=== PATIENT | female | born 1930 | race Caucasian/White ===

== ENCOUNTER 2016-11-23 16:20 | Inpatient (IN) | payer MEDICARE ==
[2016-11-23] VITALS: BP 113/54
[~2016-11-23] VITALS: Ht 152.4 cm; Wt 66.2 kg
[~2016-11-23 16:20] MED LIST: AMLO1POW PO; ASPI-605 PO; BUPR300T52 PO; CARV12.52 PO; ESCI20TA PO; GALA8CAP5 PO; LEVO75TA7 PO; MEMA10TA PO; SIMV40TA5 PO; VALS1TAB54 PO
[2016-11-23] MEDS ORDERED: IV SET PRIMARY PUMP SET 1 EA INFUS.SET MC ONE ×3 (16:21→22:19)
[2016-11-23] MEDS ORDERED: IV NS 0.9% 500 ML IV ONE (16:21)
[2016-11-23] MEDS ORDERED: IV NS 0.9% 1,000 ML BAG IV ONE (16:30)
[2016-11-23 16:59] LABS: DIFF TOTAL % 100 %; EOSINOPHILS % (AUTO) 0.4 % (0.0-6.0); HEMATOCRIT 37 % (33-45); HEMOGLOBIN 12.2 g/dL (11.5-14.8); LYMPHOCYTES # (AUTO) 0.7 /CMM (0.8-4.8); LYMPHOCYTES % (AUTO) 12.5 % (20.0-44.0); MEAN CORPUSCULAR HEMOGLOBIN 30 PG (26.0-33.0); MEAN CORPUSCULAR HGB CONC 33 g/dl (31.0-36.0); MEAN CORPUSCULAR VOLUME 91 fL (82-100); MONOCYTES # (AUTO) 0.6 /CMM (0.1-1.30); MONOCYTES % (AUTO) 11.6 % (2.0-12.0); NEUTROPHILS # (AUTO) 4.1 /CMM (1.8-8.9); NEUTROPHILS % (AUTO) 75.5 % (43.0-81.0); PLATELET COUNT (AUTO) 153 /CMM (150-450); RED BLOOD CELL COUNT(AUTO) 4.05 MIL/uL (4.0-5.2); WHITE BLOOD COUNT (AUTO) 5.4 K/uL (4.3-11.0)
[2016-11-23] MEDS ORDERED: IV NS 0.9% 1,000 ML ONE ×2 (16:59→22:19)
[2016-11-23] MEDS ORDERED: PIPERACILLIN /TAZOBACTAM 3.375 G in IV D5W 50 ML IV ONE (17:00)
[2016-11-23 17:02] LABS: KETONES,URINE NEGATIVE (NEGATIVE); LEUKOCYTE ESTERASE ,URINE TRACE (NEGATIVE)
[2016-11-23 17:03] LABS: ANION GAP 11 (5-14); CALCIUM, SERUM 9.4 mg/dL (8.5-10.1); CARBON DIOXIDE 34 mmol/L (21-32); CHLORIDE 105 mmol/L (98-107); CREATININE 1.6 mg/dL (0.6-1.3); GLUCOSE 166 mg/dL (74-106); POTASSIUM 3.7 mmol/L (3.5-5.1); SODIUM SERUM 146 mmol/L (136-145); UREA NITROGEN, BLOOD 32 mg/dL (7-18)
[2016-11-23 17:06] LABS: ADD UA MICROSCOPIC YES
[2016-11-23 17:11] LABS: LACTIC ACID 1.7 mmol/L (0.4-2.0)
[2016-11-23 17:11] LABS: ADD URINE CULTURE NO; RBC,URINE 0-2 /HPF (0-2); WBC,URINE 0-2 /HPF (0-3)
[2016-11-23 17:13] LABS: PROTHROMBIN TIME 10.8 SECS (9.5-12.7)
[2016-11-23] MEDS ORDERED: MEMA28CA PO (17:21)
[2016-11-23] MEDS ORDERED: ESCI10TA PO (17:21)
[2016-11-23] MEDS ORDERED: POTA8TAB8 PO (17:21)
[2016-11-23] MEDS ORDERED: BUPR100T13 PO ×2 (17:21)
[2016-11-23] MEDS ORDERED: LEVO88TA5 PO (17:21)
[2016-11-23] MEDS ORDERED: LEVE500T9 PO ×2 (17:21)
[2016-11-23] MEDS ORDERED: AMLO5TAB2 PO (17:21)
[2016-11-23 17:28] LABS: TROPONIN I < 0.017 ng/mL (0.00-0.056)
[2016-11-23 17:38] LABS: ALANINE AMINOTRANSFERASE 29 U/L (12-78); ALBUMIN 3.2 g/dL (3.4-5.0); ASPARTATE AMINOTRANSFERASE 21 U/L (15-37); BILIRUBIN,DIRECT 0.1 mg/dL (0.0-0.2); BILIRUBIN,TOTAL 0.5 mg/dL (0.2-1.0); INDIRECT BILIRUBIN 0.4 mg/dL (0.0-1.1); TOTAL PROTEIN, SERUM 6.8 g/dL (6.4-8.2)
[2016-11-23 20:24] VITALS: BP 109/54
[2016-11-23] MEDS ORDERED: HYDROCODONE/APAP 5/325MG 1 EACH TABLET PO PRN (21:30)
[2016-11-23] MEDS ORDERED: Z GUARD REMEDY 2 OZ OINT TP PRN (21:30)
[2016-11-23] MEDS ORDERED: MAGNESIUM HYDROXIDE 30 ML UDC PO PRN (21:30)
[2016-11-23] MEDS ORDERED: IV NS 0.9% 1,000 ML IV PRN (21:30)
[2016-11-23] MEDS ORDERED: ACETAMINOPHEN 325 MG TABLET PO PRN (21:30)
[2016-11-23] MEDS ORDERED: ENOXAPARIN SODIUM 40 MG/0.4 ML DISP.SYRIN SQ SCH ×2 (21:30→22:00)
[2016-11-23] MEDS ORDERED: ZOLPIDEM TARTRATE 5 MG TABLET PO PRN (21:30)
[2016-11-23] MEDS ORDERED: ONDANSETRON HCL/PF 4 MG/2 ML VIAL IVP PRN (21:30)
[2016-11-23] MEDS ORDERED: ENOXAPARIN SODIUM 40 MG/0.4 ML DISP.SYRIN SQ ONE (22:25)
[2016-11-24] VITALS: BP_SYST 109; BP_SYST 113; BP_DIAS 54
[2016-11-24] MEDS ORDERED: ACETAMINOPHEN 325 MG TABLET ONE (00:20)
[2016-11-24] MEDS ORDERED: ALBUTEROL FS 2.5 MG/3 ML VIAL.NEB NEB PRN (01:00)
[2016-11-24] MEDS ORDERED: IPRATROPIUM NEB FS 0.5 MG/2.5 ML AMPUL.NEB NEB PRN (01:00)
[2016-11-24] MEDS ORDERED: IBUPROFEN 400 MG TABLET PO PRN (01:30)
[2016-11-24] MEDS ORDERED: ACETYLCYSTEINE 10% SOLN 400 MG/4 ML VIAL NEB ONE (01:30)
[2016-11-24] MEDS ORDERED: ACETYLCYSTEINE 10% SOLN 400 MG/4 ML VIAL ONE (01:44)
[2016-11-24 04:00] VITALS: BP 126/53
[2016-11-24 06:59] LABS: BASOPHILS % (AUTO) 0.5 % (0.0-2.0); DIFF TOTAL % 100 %; EOSINOPHILS # (AUTO) 0.1 /CMM (0.0-0.7); EOSINOPHILS % (AUTO) 1.3 % (0.0-6.0); HEMATOCRIT 34 % (33-45); HEMOGLOBIN 11.4 g/dL (11.5-14.8); LYMPHOCYTES % (AUTO) 20.4 % (20.0-44.0); MEAN CORPUSCULAR HEMOGLOBIN 31 PG (26.0-33.0); MEAN CORPUSCULAR HGB CONC 33 g/dl (31.0-36.0); MEAN CORPUSCULAR VOLUME 91 fL (82-100); MONOCYTES # (AUTO) 0.6 /CMM (0.1-1.30); MONOCYTES % (AUTO) 13.7 % (2.0-12.0); NEUTROPHILS % (AUTO) 64.1 % (43.0-81.0); PLATELET COUNT (AUTO) 116 /CMM (150-450); RED BLOOD CELL COUNT(AUTO) 3.73 MIL/uL (4.0-5.2); WHITE BLOOD COUNT (AUTO) 4.7 K/uL (4.3-11.0)
[2016-11-24 07:05] LABS: CALCIUM, SERUM 8.9 mg/dL (8.5-10.1); CREATININE 1.3 mg/dL (0.6-1.3); PHOSPHORUS 3.7 mg/dL (2.5-4.9); POTASSIUM 3.5 mmol/L (3.5-5.1)
[2016-11-24] MEDS ORDERED: PANTOPRAZOLE 40 MG TABLET.DR PO SCH (07:30)
[2016-11-24] MEDS: ACETYLCYSTEINE 10% SOLN 400 MG/4 ML VIAL NEB SCH ×2 (07:35→09:04)
[2016-11-24 08:00] VITALS: BP 116/53
[2016-11-24] MEDS ORDERED: HYDROCHLOROTHIAZIDE 25 MG TABLET PO SCH (09:00)
[2016-11-24] MEDS ORDERED: VALSARTAN 80 MG TABLET PO SCH (09:00)
[2016-11-24] MEDS ORDERED: LEVETIRACETAM (250 MG) 250 MG TABLET PO SCH ×2 (09:00→18:00)
[2016-11-24] MEDS ORDERED: buPROPion 100 MG TABLET PO SCH ×2 (09:00)
[2016-11-24] MEDS ORDERED: ESCITALOPRAM OXALATE (10 MG) 10 MG TABLET PO SCH (09:00)
[2016-11-24] MEDS ORDERED: ASPIRIN EC 81 MG TABLET.DR PO SCH (09:00)
[2016-11-24] MEDS ORDERED: LEVOTHYROXINE SODIUM 88 MCG TABLET PO SCH (09:00)
[2016-11-24] MEDS ORDERED: POTASSIUM CHLORIDE 10 MEQ TABLET.SA PO SCH (09:00)
[2016-11-24] MEDS ORDERED: GALANTAMINE HYDROBROMIDE 4 MG TABLET PO SCH (09:00)
[2016-11-24] MEDS ORDERED: CARVEDILOL 12.5 MG TABLET PO SCH (09:00)
[2016-11-24] MEDS ORDERED: MEMANTINE HCL 5 MG TABLET PO SCH (09:00)
[2016-11-24] MEDS ORDERED: GALANTAMINE HYDROBROMIDE 8 MG TABLET PO SCH (09:00)
[2016-11-24] MEDS ORDERED: PIPERACILLIN /TAZOBACTAM 3.375 G in IV D5W 50 ML IV SCH ×4 (10:00)
[2016-11-24] MEDS ORDERED: SIMVASTATIN 40 MG TABLET PO SCH (18:00)
[2016-11-24] MEDS ORDERED: AMLODIPINE BESYLATE 5 MG TABLET PO SCH (18:00)
== END 2016-11-24 10:15 | disposition left against medical advice (07) | DRG 871 ==
LOC: ER 16:21 → TELE-TD 20:13 → TELE1 22:55
PROVIDERS: ADMIT Nurse Practitioner Acute Care; ATTEND Nurse Practitioner Acute Care
DX: A41.9 Sepsis, unspecified organism (principal); G93.41 Metabolic encephalopathy; N17.0 Acute kidney failure with tubular necrosis; J96.01 Acute respiratory failure with hypoxia; J15.9 Unspecified bacterial pneumonia; J90 Pleural effusion, not elsewhere classified; I50.20 Unspecified systolic (congestive) heart failure; I13.0 Hypertensive heart and chronic kidney disease with heart failure and stage 1 through stage 4 chronic kidney disease, or unspecified chronic kidney disease; E03.9 Hypothyroidism, unspecified; E78.5 Hyperlipidemia, unspecified; G30.9 Alzheimer's disease, unspecified; F02.80 Dementia in other diseases classified elsewhere, unspecified severity, without behavioral disturbance, psychotic disturbance, mood disturbance, and anxiety; Z83.3 Family history of diabetes mellitus; N18.9 Chronic kidney disease, unspecified
CPT/HCPCS: 36415; 71010-TC; 80048-TC; 80061-TC; 80076-TC; 81000-TC; 83605-TC; 83735-TC; 83880; 84100-TC; 84484-TC; 85025-TC; 85730-TC; 87040-TC; 87081-TC; 94799-TC; A4606; A6402; J1650; J2543; J7030; J7040; J7060; Z7610

== ENCOUNTER 2016-12-26 20:51 | Inpatient (IN) | payer MEDICARE ==
[~2016-12-26] VITALS: Ht 162.6 cm; Wt 68.7 kg
[~2016-12-26 20:51] MED LIST changes: -AMLO1POW PO; +AMLO5TAB2 PO; +BUPR100T13 PO; -BUPR300T52 PO; +ESCI10TA PO; -ESCI20TA PO; +LEVE500T9 PO; -LEVO75TA7 PO; +LEVO88TA5 PO; -MEMA10TA PO; +MEMA28CA PO; +POTA8TAB8 PO
--- NOTE | 2016-12-26 21:13 | NUR ---
PT BIBA#102 PT PER FAMILY IS MORE ALTERED THAN NORMAL, PT STOPPED VERBALZING HER NEEDS OR TALKING 8 HOURS AGO PER FAMILY. PT NONVERBNAL. RR EVEN AND UNLABORED. NO SOB NOTED. NAD NOTED. NO NVD AT THIS TIME. PT NOT DIAPHORETIC. PT NOTED CONTRACTED WITH UPPER EXTREMETIES. PT GOWNED AND PLACED ON MONITOR WAITING FOR MD RICHARDSON.
[2016-12-26 21:21] LABS: BASOPHILS % (AUTO) 0.6 % (0.0-2.0); EOSINOPHILS # (AUTO) 0.3 /CMM (0.0-0.7); EOSINOPHILS % (AUTO) 5.3 % (0.0-6.0); HEMATOCRIT 43 % (33-45); HEMOGLOBIN 14.2 g/dL (11.5-14.8); LYMPHOCYTES # (AUTO) 1.5 /CMM (0.8-4.8); LYMPHOCYTES % (AUTO) 26.1 % (20.0-44.0); MEAN CORPUSCULAR HEMOGLOBIN 30 PG (26.0-33.0); MEAN CORPUSCULAR HGB CONC 33 g/dl (31.0-36.0); MEAN CORPUSCULAR VOLUME 91 fL (82-100); MONOCYTES # (AUTO) 0.7 /CMM (0.1-1.30); MONOCYTES % (AUTO) 11.1 % (2.0-12.0); NEUTROPHILS # (AUTO) 3.4 /CMM (1.8-8.9); NEUTROPHILS % (AUTO) 56.9 % (43.0-81.0); PLATELET COUNT (AUTO) 175 /CMM (150-450); RDW COEFFICIENT OF VARIATION 13.8 (11.5-15.0); RED BLOOD CELL COUNT(AUTO) 4.68 MIL/uL (4.0-5.2); WHITE BLOOD COUNT (AUTO) 5.9 K/uL (4.3-11.0)
--- NOTE | 2016-12-26 21:28 | NUR ---
XRAY AT BEDSIDE
[2016-12-26] MEDS ORDERED: IV NS 0.9% 500 ML BAG IV ONE (21:30)
[2016-12-26 21:32] LABS: CALCIUM, SERUM 10.3 mg/dL (8.5-10.1); CARBON DIOXIDE 32 mmol/L (21-32); CHLORIDE 102 mmol/L (98-107); CREATININE 1.4 mg/dL (0.6-1.3); GLUCOSE 106 mg/dL (74-106); POTASSIUM 3.7 mmol/L (3.5-5.1); SODIUM SERUM 138 mmol/L (136-145); UREA NITROGEN, BLOOD 26 mg/dL (7-18)
[2016-12-26 21:33] LABS: INR 1.07 (0.87-1.13); PROTHROMBIN TIME 11.1 SECS (9.5-12.7)
[2016-12-26 21:35] LABS: ALANINE AMINOTRANSFERASE 21 U/L (12-78); ALBUMIN 3.6 g/dL (3.4-5.0); ALKALINE PHOSPHATASE 83 U/L (46-116); ASPARTATE AMINOTRANSFERASE 19 U/L (15-37); BILIRUBIN,DIRECT 0.1 mg/dL (0.0-0.2); BILIRUBIN,TOTAL 0.5 mg/dL (0.2-1.0); SERUM AMMONIA 11 umol/L (11-32); TOTAL PROTEIN, SERUM 7.2 g/dL (6.4-8.2)
--- NOTE | 2016-12-26 21:35 | NUR ---
PT TO CT.
[2016-12-26 21:38] LABS: TROPONIN I < 0.017 ng/mL (0.00-0.056)
[2016-12-26] MEDS ORDERED: IV NS 0.9% 500 ML IV ONE (21:43)
[2016-12-26] MEDS ORDERED: IV SET PRIMARY 1 EA INFUS.SET MC ONE (21:43)
--- NOTE | 2016-12-26 21:44 | NUR ---
PT RETURNED FROM CT.
--- NOTE | 2016-12-26 22:12 | NUR ---
URINE COLLECTED. SENT TO LAB.
[2016-12-26 22:23] LABS: APPEARANCE,URINE CLEAR (CLEAR); BILIRUBIN,URINE NEGATIVE (NEGATIVE); BLOOD, URINE NEGATIVE Ery/uL (NEGATIVE); COLOR,URINE YELLOW (YELLOW); KETONES,URINE NEGATIVE (NEGATIVE); LEUKOCYTE ESTERASE ,URINE NEGATIVE (NEGATIVE); NITRITE, URINE NEGATIVE (NEGATIVE); PH,URINE 6.5 (5.0-8.0); PROTEIN,URINE NEGATIVE (NEGATIVE); UGLUCOSE NEGATIVE (NEGATIVE); UROBILINOGEN,URINE 0.2 EU/dL (0.2)
[2016-12-26 22:30] LABS: CANNABINOID, URINE NEGATIVE (NEGATIVE); PHENCYCLIDINE SCREEN,URINE NEGATIVE (NEGATIVE)
[2016-12-26 22:33] LABS: THYROID STIMULATING HORMONE 0.982 uIU/mL (0.358-3.74)
--- NOTE | 2016-12-26 22:57 | NUR ---
DR. TERRAZAS AT BEDSIDE SPEAKING TO PT AND FAMILY REGARDING POC
--- NOTE | 2016-12-26 23:10 | NUR ---
DR. TERRAZAS SPOKE TO DR. DELACRUZ REGARDING ADMISSION.
--- NOTE | 2016-12-26 23:56 | NUR ---
PT ASSIGNED TO TELE 119, ORDERS FROM DR. DELACRUZ
--- NOTE | 2016-12-26 23:58 | NUR ---
PT ASSIGNED TO TELE BED 113.
--- NOTE | 2016-12-27 00:03 | NUR ---
REPORT GIVEN TO CN ELSE FOR VERA.
--- NOTE | 2016-12-27 00:18 | NUR ---
PT TRASNFERED PER ACLS PROTOCOL TO TELE BED 113
[2016-12-27 00:46] VITALS: BP 128/59
[2016-12-27] MEDS ORDERED: ACETAMINOPHEN 650 MG/SUPP.RECT RC PRN (01:00)
[2016-12-27] MEDS ORDERED: IV NS 0.9% 1,000 ML BAG IV PRN ×3 (01:00→01:30)
[2016-12-27] MEDS ORDERED: ENOXAPARIN SODIUM 30 MG/0.3 ML DISP.SYRIN SQ SCH (01:00)
[2016-12-27] MEDS ORDERED: LEVOFLOXACIN 500 MG /D5W 100ML 500 MG in PREMIX 1 EA IV SCH ×2 (01:00→07:42)
[2016-12-27] MEDS ORDERED: ONDANSETRON HCL/PF 4 MG/2 ML VIAL IV PRN (01:00)
[2016-12-27] MEDS ORDERED: ENOXAPARIN SODIUM 30 MG/0.3 ML DISP.SYRIN ONE (01:04)
[2016-12-27] MEDS ORDERED: IV SET PRIMARY PUMP SET 1 EA INFUS.SET MC ONE (01:06)
[2016-12-27] MEDS ORDERED: LEVOFLOXACIN 500 MG /D5W 100ML 100 ML IV ONE (01:31)
[2016-12-27] MEDS ORDERED: SECONDARY IV SET 1 EA INFUS.SET MC ONE (01:33)
--- NOTE | 2016-12-27 02:00 | NUR ---
ADMISSION NOTE A 86 YEARS FEMALE ADMITTED TO UNIT VIA GURNEY WITH THE DX OF R/O TIA , PT IS AWAKE , NON VERBAL, NOT ABLE TO FOLLOW COMMAND.. BREATHING EVEN AND UNLABORED ON ROOM AIR, SATING 97 % , SHOWING SR HR 73 ON TELE MONITOR, PERIPHERAL IV ON RH #20 G INTACT AND PATENT WITH CONTINUE IVF 0.9% NS @ 75 MLS/HR. INCONTINENT FOR BOWEL/BLADDER , HX PROVIDED BY DAUGHTER AT THE BED SIDE , PT IS FULL CODE, PER DAUGHTER SHE WAS ADMITTED ONE MONTH AGO FOR PNA. BED IN THE LOWEST /LOCKED POSITION, SKIN ASSESSED , ALL ADMISSION ORDERS RECEIVED WILL HAVE MRI W/O CONTRAST IN AM .WILL CONTINUE TO MONITOR .
--- NOTE | 2016-12-27 02:30 | NUR ---
RN NOTE; NIH STROKE SCALE UNTESTABLE DUE TO PT IS NON-VERBAL AND DOES NOT FOLLOW COMMAND , PT HAS A HX OF DEMENTIA .
[2016-12-27 04:00] VITALS: BP_SYST 117; BP_SYST 128; BP_DIAS 59; BP_DIAS 65
[2016-12-27] MEDS ORDERED: BLOOD SUGAR DIAGNOSTIC 1 EACH STRIP IN SCH (06:00)
--- NOTE | 2016-12-27 06:00 | NUR ---
RN NOTE; PT IS FULLY ALERT/ORIENTED , ABLE TO TALK , OBEYS COMMAND, ABLE TO MOVE EXTREMITIES. WILL CONTINUE TO MONITOR .
[2016-12-27 06:54] LABS: BASOPHILS % (AUTO) 0.4 % (0.0-2.0); EOSINOPHILS # (AUTO) 0.2 /CMM (0.0-0.7); EOSINOPHILS % (AUTO) 3.7 % (0.0-6.0); HEMATOCRIT 40 % (33-45); HEMOGLOBIN 13.2 g/dL (11.5-14.8); LYMPHOCYTES # (AUTO) 1.3 /CMM (0.8-4.8); LYMPHOCYTES % (AUTO) 21.9 % (20.0-44.0); MEAN CORPUSCULAR HEMOGLOBIN 30 PG (26.0-33.0); MEAN CORPUSCULAR HGB CONC 33 g/dl (31.0-36.0); MEAN CORPUSCULAR VOLUME 92 fL (82-100); MONOCYTES # (AUTO) 0.6 /CMM (0.1-1.30); MONOCYTES % (AUTO) 10.6 % (2.0-12.0); NEUTROPHILS # (AUTO) 3.8 /CMM (1.8-8.9); NEUTROPHILS % (AUTO) 63.4 % (43.0-81.0); PLATELET COUNT (AUTO) 184 /CMM (150-450); RDW COEFFICIENT OF VARIATION 14.1 (11.5-15.0); RED BLOOD CELL COUNT(AUTO) 4.34 MIL/uL (4.0-5.2); WHITE BLOOD COUNT (AUTO) 6.1 K/uL (4.3-11.0)
--- NOTE | 2016-12-27 07:04 | NUR ---
RN EOS NOTE; NO ANY DISTRESS DURING THE SHIFT, IVF CONTINUE , ENDORSED TO NEXT SHIFT RN FOR CONTINUITY OF CARE.
[2016-12-27 07:10] LABS: CALCIUM, SERUM 9.4 mg/dL (8.5-10.1); CREATININE 1.3 mg/dL (0.6-1.3); POTASSIUM 3.2 mmol/L (3.5-5.1)
[2016-12-27 08:00] VITALS: BP 103/54
--- NOTE | 2016-12-27 08:00 | NUR ---
TELE1/RN AM SHIFT INITIAL NOTES RECEIVED PT AWAKE SITTING IN BED WITH DAUGHTER AT BEDSIDE. PT IS A/O X 3, ABLE TO VERBALIZED NEEDS. ON ROOM AIR SATURATING @ 92%, LUNG SOUNDS CLEAR. ON TELE WITH SINUS RHYTHM, HR 65. WITH ON GOING IV INFUSION OF NS @ 75CC/HR, IV SITE PATENT WITH NO S/S OF INFECTION. PT ON NPO STATUS AT THIS TIME. ASSESSED, CRANIAL V INTACT, FACIAL FEATURES SYMMETRICAL, NO SIDED WEAKNESS NOTED. PT IN COMFORTABLE AT THIS TIME. CL WITHIN REACHED AND SAFETY MAINTAINED. ON GOING MONITORING.
[2016-12-27] MEDS ORDERED: ASPIRIN 300 MG/SUPP.RECT RC SCH (09:00)
[2016-12-27] MEDS: PANTOPRAZOLE 40 MG VIAL IV SCH (09:54)
--- NOTE | 2016-12-27 10:28 | NUR ---
TELE1/RN ROUNDS - DR. DELACRUZ UPDATED PT'S CONDITION. NOTIFIED DR. DELACRUZ THAT PER MY ASSESSMENT, PT NOTED CRANIAL V IS INTACT, PT A/O X 3, NO RESIDUAL WEAKNESS NOTED, FACIAL FEATURES ARE SYMMETRIC. RECEIVED VERBAL ORDERS TO START PT ON CLEAR LIQUIDS AND ADVANCED DIET IF TOLERATED. NO OTHER ORDERS RECEIVED. MONITORING CONTINUED.
[2016-12-27] MEDS: ASPIRIN EC 81 MG TABLET.DR PO SCH (10:30)
[2016-12-27] MEDS ORDERED: LEVETIRACETAM (250 MG) 250 MG TABLET PO SCH ×2 (10:46→21:00)
[2016-12-27] MEDS ORDERED: POTASSIUM CHLORIDE 10 MEQ TABLET.SA PO SCH (11:00)
--- NOTE | 2016-12-27 11:45 | NUR ---
TELE1/RN ROUNDS - DR. QUINONES UPDATED PT'S CONDITION. PT SEEN & EXAMINED BY DR. QUINONES. NO NEW ORDERS RECEIVED AT THIS TIME. MONITORING CONTINUED.
[2016-12-27] MEDS: GALANTAMINE HYDROBROMIDE 4 MG TABLET PO SCH (11:50)
[2016-12-27] MEDS: buPROPion 100 MG TABLET PO SCH (11:50)
[2016-12-27] MEDS: LEVOTHYROXINE SODIUM 88 MCG TABLET PO SCH (11:50)
[2016-12-27] MEDS: VALSARTAN 80 MG TABLET PO SCH (11:51)
[2016-12-27] MEDS: MEMANTINE HCL 5 MG TABLET PO SCH ×2 (11:51→17:08)
[2016-12-27] MEDS: ESCITALOPRAM OXALATE (10 MG) 10 MG TABLET PO SCH (11:51)
[2016-12-27] MEDS: SIMVASTATIN 40 MG TABLET PO SCH ×2 (11:51→17:08)
[2016-12-27] MEDS: CARVEDILOL 12.5 MG TABLET PO SCH ×2 (11:52→17:09)
[2016-12-27] MEDS: HYDROCHLOROTHIAZIDE 25 MG TABLET PO SCH (11:52)
[2016-12-27 12:00] VITALS: BP 120/60
[2016-12-27] MEDS ORDERED: buPROPion 100 MG TABLET PO SCH (14:00)
[2016-12-27 16:00] VITALS: BP 105/47
--- NOTE | 2016-12-27 16:00 | NUR ---
TELE1/RN AFTERNOON ROUNDS NO CHANGE OF CONDITION. MONITORING CONTINUED.
[2016-12-27] MEDS: IV NS 0.9% 1,000 ML IV PRN (17:07)
[2016-12-27] MEDS: AMLODIPINE BESYLATE 5 MG TABLET PO SCH (17:08)
[2016-12-27] MEDS ORDERED: Z GUARD REMEDY 2 OZ OINT TP PRN (17:30)
--- NOTE | 2016-12-27 19:50 | NUR ---
TELE1/RN AM SHIFT END NOTES NO CHANGE OF CONDITION NOTED DURING THE SHIFT. NEEDS MET. PT ENDORSED TO PM NURSE TO CONTINUE CARE. CL WITHIN REACHED AND SAFETY MAINTAINED.
[2016-12-27 20:00] VITALS: BP 100/51
[2016-12-27] MEDS: LEVETIRACETAM (250 MG) 250 MG TABLET PO SCH (21:00)
[2016-12-27] MEDS: ENOXAPARIN SODIUM 30 MG/0.3 ML DISP.SYRIN SQ SCH (21:00)
[2016-12-27] MEDS: LEVOFLOXACIN 250 MG /D5W 50 ML 250 MG in PREMIX 1 EA IV SCH (23:28)
[2016-12-28] VITALS: BP 109/52
[2016-12-28 04:00] VITALS: BP 108/58
--- NOTE | 2016-12-28 05:00 | NUR ---
REPAIR COIL WINDER - PT. RESTED W/EYES CLOSED FOR MOST PART OF THE NIGHT. PLEASANT PT. W/NO NEURO DEFICITS. PT.CAN RAISE BILATERAL UE'S, HOWEVER, PT. GRABBED HER RT.UE W/HELP OF LUE. DAUGHTER AT , STATED THAT HER RUE WAS ALWAYS WEAKER THAN LEFT. STRONG/EQUAL PLANTAR PUSHES, EQUAL & STRONG HAND SWITCHBOARD WIRER. EYES/TONGUE AND SMILE ALL SYMMETRICAL. PT. HAS 0.9%NS INFUSING AT 75CC/HR. VSS. AFEBRILE. SKIN INTACT. PT. DIAPERED. PT.IS ON R/A W/O2 SATS >95%. CONT. POC.
[2016-12-28] MEDS: IV NS 0.9% 1,000 ML IV PRN (07:39)
[2016-12-28 08:00] VITALS: BP 104/45
--- NOTE | 2016-12-28 08:00 | NUR ---
MS RN NOTE PATIENT ALERT , ORIENTED X3, IN BED, ALL NEEDS ATTENDED , RT HAND INTACT ON IVF ORDERED BED IN LOWEST AND LOCKED POSITION , CALL LIGHT WITHIN REACH FAMILY AT BEDSIDE , PLAN OF CARE DISCUSSED WITH PATIENT , WILL MONITOR CLOSELY HAVING BREAKFAST
[2016-12-28] MEDS: MEMANTINE HCL 5 MG TABLET PO SCH ×2 (08:56→17:12)
[2016-12-28] MEDS: HYDROCHLOROTHIAZIDE 25 MG TABLET PO SCH (08:56)
[2016-12-28] MEDS: buPROPion 100 MG TABLET PO SCH (08:56)
[2016-12-28] MEDS: VALSARTAN 80 MG TABLET PO SCH (08:57)
[2016-12-28] MEDS: ASPIRIN EC 81 MG TABLET.DR PO SCH (08:57)
[2016-12-28] MEDS: LEVOTHYROXINE SODIUM 88 MCG TABLET PO SCH (08:57)
[2016-12-28] MEDS: ESCITALOPRAM OXALATE (10 MG) 10 MG TABLET PO SCH (08:57)
[2016-12-28] MEDS: PANTOPRAZOLE 40 MG VIAL IV SCH (08:57)
[2016-12-28] MEDS: POTASSIUM CHLORIDE 10 MEQ TABLET.SA PO SCH (08:58)
[2016-12-28] MEDS: GALANTAMINE HYDROBROMIDE 4 MG TABLET PO SCH (08:58)
[2016-12-28] MEDS: CARVEDILOL 12.5 MG TABLET PO SCH ×2 (08:58→17:13)
[2016-12-28] MEDS: LEVETIRACETAM (250 MG) 250 MG TABLET PO SCH ×2 (09:10→21:27)
--- NOTE | 2016-12-28 11:00 | NUR ---
MS RN NOTE SEEN BY DR DELACRUZ NOTIFIED THAT PER DAUGHTER WANTS TO HAVE BREATHING TX, ORDER CARRIED OUT T
[2016-12-28 12:00] VITALS: BP 123/59
[2016-12-28] MEDS ORDERED: ALBUTEROL FS 2.5 MG/3 ML VIAL.NEB NEB PRN (12:30)
[2016-12-28] MEDS ORDERED: IPRATROPIUM NEB FS 0.5 MG/2.5 ML AMPUL.NEB NEB PRN (12:30)
--- NOTE | 2016-12-28 14:06 | NUR ---
MS STONE NOTE PER FAMILY REQUEST AND Ruth SCHULTZ TO START SOFT DIET Addendum: 12/28/16 at 1831 by HENRIQUE CABRAL RN DR DELACRUZ
--- NOTE | 2016-12-28 15:15 | NUR ---
MS RN NOTE BREATHING TX DONE ORDERED BY RT ,WELL TOLERATED C\O RT LEG PAIN X CALLED TO DR DELACRUZ WITH ORDER TYLENOL 650 MG PO Q6 HOUR PRN ,ORDER CARRIED OUT
[2016-12-28] MEDS ORDERED: ACETAMINOPHEN 325 MG TABLET PO PRN (15:30)
[2016-12-28] MEDS ORDERED: ACETAMINOPHEN 650 MG/20.3 ML UDC NG PRN (15:30)
--- NOTE | 2016-12-28 15:55 | NUR ---
telegraph inspector note c]o pain rt leg Tylenol po given as ordered
[2016-12-28 16:00] VITALS: BP 128/60
--- NOTE | 2016-12-28 16:28 | NUR ---
MS RN NOTE STROKE TEACHING GIVEN TO PATIENT AND DAUGHTER \CAREGIVER , UNDERSTOOD WITH RETURN DEMONSTRATION GIVEN
[2016-12-28] MEDS: AMLODIPINE BESYLATE 5 MG TABLET PO SCH (17:13)
[2016-12-28] MEDS: SIMVASTATIN 40 MG TABLET PO SCH (17:15)
--- NOTE | 2016-12-28 17:16 | NUR ---
MULTIPLE GAMES DEALER NOTE PT EVAL DONE ABLE TO STAND UP WITH MAX ASSISTANCE USING A WALKER
--- NOTE | 2016-12-28 18:29 | NUR ---
SUPERVISOR TANK HOUSE NOTE HAVING DINNER , DAUGHTER AT BEDSIDE, ALL NEEDS ATTENDED, NO C]O PAIN OR DISCOMFORT, WILL CONT TO MONITOR CLOSELY
--- NOTE | 2016-12-28 19:50 | NUR ---
RN NOTES RECEIVED PT AWAKE ON BED WITH DAUGHTER AT BEDSIDE. NO ACUTE RESP DISTRESS. AOX3 ABLE TO COMMUNICATE TO FAMILY AND STAFF. SR HR 71 ON TELE MONITOR./ BILATERAL BREATH SOUND DIMINISHED. IV SITE ON RIGHT HAND G 20 WITH NS @ 75 CC/HR INTACT AND PATENT. NEURO ASSESSMENT RENDERED. PT ABLE TO COMMUNICATE WELL, ABLE TO LIFT BOTH HANDS AND LEGS FOLLOWED COMMANDS KEPT PT CLEAN AND DRY AND COMFORTABLE IN BED. WILL CONTINUE TO MONITOR.
[2016-12-28 20:00] VITALS: BP 119/53
[2016-12-28] MEDS: ENOXAPARIN SODIUM 30 MG/0.3 ML DISP.SYRIN SQ SCH (21:32)
[2016-12-28] MEDS: LEVOFLOXACIN 250 MG /D5W 50 ML 250 MG in PREMIX 1 EA IV SCH (22:20)
[2016-12-29] VITALS: BP 131/61
[2016-12-29 04:00] VITALS: BP 105/48
--- NOTE | 2016-12-29 06:59 | NUR ---
RN NOTES PT ASLEEP WELL THROUGHOUT THE SHIFT. VS STABLE. DENIES PAIN.A FEBRILE. DAUGHTER AT BEDSIDE. NEURO CHECKED RENDERED NO SIGNIFICANT VERA SHOWS NO DROOPING, NO UNUSUAL WEAKNESS, SPEAK WELL IN ROMANIAN LANGUAGE. ABLE TO MOVE EXT AND ABLE TO COMMAND PATIENT KEPT PT CLEAN AND COMFORTABLE IN BED. WILL ENDORSED CONTINUITY OF CARE TO AM NURSE.
--- NOTE | 2016-12-29 07:15 | NUR ---
RN INITIAL NOTES RECEIVED PT ASLEEP, EASILY AROUSABLE. NO RESPIRATORY DISTRESS NOTED. NO SOB NOTED. NO SIGNS OF PAIN NOTED. SINUS RHYTHM WITH PVC ON MONITOR. RH #[address] PT COMFORTABLE. DAUGHTER AT BEDSIDE. CALL LIGHT WITHIN REACH. WILL MONITOR.
[2016-12-29 07:39] LABS: BASOPHILS % (AUTO) 0.3 % (0.0-2.0); EOSINOPHILS # (AUTO) 0.3 /CMM (0.0-0.7); EOSINOPHILS % (AUTO) 4.3 % (0.0-6.0); HEMATOCRIT 37 % (33-45); HEMOGLOBIN 12.5 g/dL (11.5-14.8); LYMPHOCYTES % (AUTO) 13.3 % (20.0-44.0); MEAN CORPUSCULAR HEMOGLOBIN 31 PG (26.0-33.0); MEAN CORPUSCULAR HGB CONC 34 g/dl (31.0-36.0); MEAN CORPUSCULAR VOLUME 91 fL (82-100); MONOCYTES # (AUTO) 0.5 /CMM (0.1-1.30); MONOCYTES % (AUTO) 6.3 % (2.0-12.0); NEUTROPHILS # (AUTO) 5.8 /CMM (1.8-8.9); NEUTROPHILS % (AUTO) 75.8 % (43.0-81.0); PLATELET COUNT (AUTO) 162 /CMM (150-450); RDW COEFFICIENT OF VARIATION 13.9 (11.5-15.0); RED BLOOD CELL COUNT(AUTO) 4.05 MIL/uL (4.0-5.2); WHITE BLOOD COUNT (AUTO) 7.7 K/uL (4.3-11.0)
[2016-12-29 07:45] LABS: CREATININE 1.2 mg/dL (0.6-1.3); POTASSIUM 3.4 mmol/L (3.5-5.1)
[2016-12-29 08:00] VITALS: BP 106/48
[2016-12-29] MEDS: GALANTAMINE HYDROBROMIDE 4 MG TABLET PO SCH (08:22)
[2016-12-29] MEDS: PANTOPRAZOLE 40 MG VIAL IV SCH (08:22)
[2016-12-29] MEDS: LEVOTHYROXINE SODIUM 88 MCG TABLET PO SCH (08:23)
[2016-12-29] MEDS: POTASSIUM CHLORIDE 10 MEQ TABLET.SA PO SCH (08:23)
[2016-12-29] MEDS: LEVETIRACETAM (250 MG) 250 MG TABLET PO SCH (08:23)
[2016-12-29] MEDS: ESCITALOPRAM OXALATE (10 MG) 10 MG TABLET PO SCH (08:23)
[2016-12-29] MEDS: VALSARTAN 80 MG TABLET PO SCH (08:23)
[2016-12-29] MEDS: HYDROCHLOROTHIAZIDE 25 MG TABLET PO SCH (08:24)
[2016-12-29] MEDS: MEMANTINE HCL 5 MG TABLET PO SCH (08:24)
[2016-12-29] MEDS: ASPIRIN EC 81 MG TABLET.DR PO SCH (08:24)
[2016-12-29] MEDS: CARVEDILOL 12.5 MG TABLET PO SCH (08:24)
--- NOTE | 2016-12-29 08:30 | NUR ---
RN NOTES SEEN AND EXAMINED BY DR. DELACRUZ. AWARE OF CURRENT LAB RESULTS: WBC 7.7, HGB 12.5, HCT 37, SODIUM 145. POTASSIUM 3.4, ON KDUR 10MEQ DAILY. BUN 11, CREA 1.2. ORDERED DC HOME WITH HOME HEALTH SERVICES. NOTED AND CARRIED OUT.
[2016-12-29] MEDS ORDERED: POTASSIUM CHLORIDE 20 MEQ TAB.PRT.SR PO SCH (11:00)
[2016-12-29 12:00] VITALS: BP 114/49
--- NOTE | 2016-12-29 13:20 | NUR ---
RN NOTES DC ORDER CLARIFIED WITH DR. DELACRUZ. ORDERED DC HOME WITH HOME HEALTH THIS AM. PER PT, SHE HAS HER OWN HOME HEALTH UNDER [facility] #[phone]. ORDERED DC HOME/ SELF CARE. PT WILL USE HER OWN HOME HEALTH. NOTED AND CARRIED OUT.
--- NOTE | 2016-12-29 14:55 | NUR ---
RN NOTES PT LEFT VIA WHEELCHAIR WITH JEVON (DTR). HEALTH TEACHINGS/ DISCHARGE INSTRUCTIONS GIVEN. DISCUSSED HOME MEDS AND NEW PRESCRIPTION. DTR VERBALIZED UNDERSTANDING. SKIN REMAINS INTACT. LEFT IN STABLE CONDITION.
== END 2016-12-29 14:59 | disposition home or self-care (01) | DRG 100 ==
LOC: ER 20:55 → TELE1 12-27 00:11
PROVIDERS: ADMIT Legal Medicine; ATTEND Legal Medicine
DX: G40.909 Epilepsy, unspecified, not intractable, without status epilepticus (principal); J15.9 Unspecified bacterial pneumonia; G93.40 Encephalopathy, unspecified; G45.9 Transient cerebral ischemic attack, unspecified; F03.90 Unspecified dementia, unspecified severity, without behavioral disturbance, psychotic disturbance, mood disturbance, and anxiety; I10 Essential (primary) hypertension; E03.9 Hypothyroidism, unspecified; E78.5 Hyperlipidemia, unspecified; Z79.899 Other long term (current) drug therapy; Z87.01 Personal history of pneumonia (recurrent)
CPT/HCPCS: 36415; 70450-TC; 70551-TC; 71010-TC; 80048-TC; 80061-TC; 80076-TC; 80305; 81000-TC; 82140-TC; 82962-TC; 84439-TC; 84443-TC; 84481; 84484-TC; 85025-TC; 85730-TC; 87081-TC; 87086-TC; 92611-TC; 93307-TC; 93880-TC; 94799-TC; 97001-TC; A4216; A4606; C9113; J1650; J1956; J7030; J7040; Z7610

== ENCOUNTER 2017-10-07 13:54 | Emergency (ER) | payer MEDICARE, MEDICAID ==
[~2017-10-07] VITALS: Ht 157.5 cm; Wt 59.0 kg
--- NOTE | 2017-10-07 14:05 | NUR ---
AAOX2, [id number] FROM HOME: SOB, HYPOXIC, SENT BY PMD FOR PNA. RR IS EVEN AND UNLABORED WITH NAD NOTED. SKIN IS WARM AND DRY. ASSISTED TO HOSPITAL GOWN. PLACED ON THE MONITOR. AWAITING MD FOR EVAL.
[2017-10-07 14:35] LABS: BASOPHILS % (AUTO) 0.6 % (0.0-2.0); EOSINOPHILS # (AUTO) 0.2 /CMM (0.0-0.7); EOSINOPHILS % (AUTO) 2.9 % (0.0-6.0); HEMATOCRIT 44 % (33-45); HEMOGLOBIN 14.9 g/dL (11.5-14.8); LYMPHOCYTES # (AUTO) 1.2 /CMM (0.8-4.8); LYMPHOCYTES % (AUTO) 18.7 % (20.0-44.0); MEAN CORPUSCULAR HEMOGLOBIN 31 PG (26.0-33.0); MEAN CORPUSCULAR HGB CONC 34 g/dl (31.0-36.0); MEAN CORPUSCULAR VOLUME 90 fL (82-100); MONOCYTES # (AUTO) 0.6 /CMM (0.1-1.30); MONOCYTES % (AUTO) 8.9 % (2.0-12.0); NEUTROPHILS # (AUTO) 4.2 /CMM (1.8-8.9); NEUTROPHILS % (AUTO) 68.9 % (43.0-81.0); PLATELET COUNT (AUTO) 165 /CMM (150-450); RDW COEFFICIENT OF VARIATION 12.5 (11.5-15.0); RED BLOOD CELL COUNT(AUTO) 4.86 MIL/uL (4.0-5.2); WHITE BLOOD COUNT (AUTO) 6.2 K/uL (4.3-11.0)
[2017-10-07 14:44] LABS: CARBON DIOXIDE 35 mmol/L (21-32); CHLORIDE 105 mmol/L (98-107); GLUCOSE 122 mg/dL (74-106); POTASSIUM 3.9 mmol/L (3.5-5.1); SODIUM SERUM 142 mmol/L (136-145); UREA NITROGEN, BLOOD 28 mg/dL (7-18)
--- NOTE | 2017-10-07 14:51 | NUR ---
XRAY AT BS
[2017-10-07 14:56] LABS: ALANINE AMINOTRANSFERASE 48 U/L (12-78); ALBUMIN 3.5 g/dL (3.4-5.0); ALKALINE PHOSPHATASE 76 U/L (46-116); ASPARTATE AMINOTRANSFERASE 32 U/L (15-37); B-TYPE NATRIURETIC PEPTIDE 114 PG/ML (0-125); BILIRUBIN,DIRECT 0.1 mg/dL (0.0-0.2); BILIRUBIN,TOTAL 0.5 mg/dL (0.2-1.0); TOTAL PROTEIN, SERUM 7.2 g/dL (6.4-8.2)
[2017-10-07 15:05] LABS: TROPONIN I < 0.017 ng/mL (0.00-0.056)
--- NOTE | 2017-10-07 15:30 | NUR ---
DR PENA AT BS FOR AN UPDATE AND RE-EVAL.
[2017-10-07 15:40] VITALS: BP 139/75
--- NOTE | 2017-10-07 15:54 | NUR ---
IV removed. Catheter intact and site benign. Pressure and 4x4 applied to site. No bleeding noted.Patient discharged to home in stable condition. Written and verbal after care instructions given. Patient verbalizes understanding of instruction.
== END 2017-10-07 15:56 | disposition home or self-care (01) ==
LOC: ER 13:55
DX: J18.9 Pneumonia, unspecified organism (principal); E78.00 Pure hypercholesterolemia, unspecified; I10 Essential (primary) hypertension; F03.90 Unspecified dementia, unspecified severity, without behavioral disturbance, psychotic disturbance, mood disturbance, and anxiety; E03.9 Hypothyroidism, unspecified; Z79.82 Long term (current) use of aspirin
CPT/HCPCS: 36415; 71045-TC; 80048-TC; 80076-TC; 83605-TC; 83880; 84484-TC; 85025-TC; 87040-TC; 87400; A4606; Z7610

== ENCOUNTER 2018-08-09 15:58 | Inpatient (IN) | payer MEDICARE, OTHER ==
[~2018-08-09] VITALS: Ht 147.3 cm; Wt 62.1 kg
[~2018-08-09 15:58] MED LIST changes: -AMLO5TAB2 PO; +AMLO5TAB7 PO
--- NOTE | 2018-08-09 17:05 | NUR ---
Gin grimes in ED - 08/09/18 at 1712 by ZAC PT REFUSED TO GIVE URINE, STS " I JUST HAVE MY PERIOD 2 DAYS AGO ".
--- NOTE | 2018-08-09 17:08 | NUR ---
BIB DAUGHTER, NOT EATING X 2DAYS, SENT HERE FROM MD'S OFFICE. PT NON VERBAL, BUT WILL LOOK @ YOU WHEN CALLED BY HER NAME. PT STABLE, RR EVEN & UNLABORED, NO RESP DISTRESS, NO VOMITING NOTED. PT SEEN & EVAL'D BY DR. WILSON. PLACED ON CARTON FORMING MACHINE HELPER. FAMILY @ BS & WILL CONT TO MONITOR.
[2018-08-09 17:10] LABS: BASOPHILS # (AUTO) 0.1 /CMM (0.0-0.2); BASOPHILS % (AUTO) 1.2 % (0.0-2.0); EOSINOPHILS % (AUTO) 2.7 % (0.0-6.0); HEMATOCRIT 43 % (33-45); HEMOGLOBIN 14.1 g/dL (11.5-14.8); LYMPHOCYTES # (AUTO) 1.5 /CMM (0.8-4.8); LYMPHOCYTES % (AUTO) 28.3 % (20.0-44.0); MEAN CORPUSCULAR HGB CONC 33 g/dl (31.0-36.0); MEAN CORPUSCULAR VOLUME 94 fL (82-100); MONOCYTES # (AUTO) 0.5 /CMM (0.1-1.30); MONOCYTES % (AUTO) 8.9 % (2.0-12.0); NEUTROPHILS # (AUTO) 3.1 /CMM (1.8-8.9); NEUTROPHILS % (AUTO) 58.9 % (43.0-81.0); PLATELET COUNT (AUTO) 176 /CMM (150-450); RED BLOOD CELL COUNT(AUTO) 4.58 MIL/uL (4.0-5.2); WHITE BLOOD COUNT (AUTO) 5.3 K/uL (4.3-11.0)
[2018-08-09 17:33] LABS: ALANINE AMINOTRANSFERASE 40 U/L (12-78); ALKALINE PHOSPHATASE 94 U/L (46-116); ASPARTATE AMINOTRANSFERASE 35 U/L (15-37); BILIRUBIN,TOTAL 0.5 mg/dL (0.2-1.0); CALCIUM, SERUM 10.8 mg/dL (8.5-10.1); CARBON DIOXIDE 30 mmol/L (21-32); CREATININE 1.2 mg/dL (0.6-1.3); GLUCOSE 160 mg/dL (74-106); TOTAL PROTEIN, SERUM 7.5 g/dL (6.4-8.2); UREA NITROGEN, BLOOD 23 mg/dL (7-18)
--- NOTE | 2018-08-09 17:35 | NUR ---
CALLED NURSING OPHTHALMOLOGY SURGICAL TECHNICIAN FOR TELE BED
[2018-08-09 17:54] LABS: ALBUMIN 3.6 g/dL (3.4-5.0); BILIRUBIN,DIRECT 0.1 mg/dL (0.0-0.2); CHLORIDE 108 mmol/L (98-107); POTASSIUM 4.1 mmol/L (3.5-5.1); SODIUM SERUM 146 mmol/L (136-145)
[2018-08-09 18:02] LABS: APPEARANCE,URINE Slightly Cloudy (CLEAR); BILIRUBIN,URINE Negative (NEGATIVE); BLOOD, URINE Negative Ery/uL (NEGATIVE); COLOR,URINE Yellow (YELLOW); KETONES,URINE Trace (NEGATIVE); LEUKOCYTE ESTERASE ,URINE Negative (NEGATIVE); NITRITE, URINE Negative (NEGATIVE); PH,URINE 8.5 (5.0-8.0); PROTEIN,URINE Negative (NEGATIVE); UGLUCOSE Negative (NEGATIVE); UROBILINOGEN,URINE 0.2 EU/dL (0.2)
[2018-08-09] MEDS ORDERED: PIPERACILLIN /TAZOBACTAM 3.375 G in IV D5W 50 ML IV ONE (18:30)
[2018-08-09] MEDS ORDERED: IV NS 0.9% 1,000 ML BAG IV ONE (18:30)
[2018-08-09 18:44] LABS: BACTERIA,URINE Few /HPF (None Seen); RBC,URINE 0-2 /HPF (0-2); SQUAMOUS EPITHELIAL CELL,UR Few /HPF (None Seen); URINE AMORPHOUS PHOSPHATES Few /HPF (None Seen); WBC,URINE 0-2 /HPF (0-3)
--- NOTE | 2018-08-09 19:12 | NUR ---
RECEIVED REPORT FROM [facility] BOWMAN FOR VERA. PT APPEARS COMFORTABLE. FAMILY AT BEDSIDE. VSS.
--- NOTE | 2018-08-09 19:33 | NUR ---
REPORT GIVEN TO RN CARLITOS, IV ATB AND IV FLUIDS TRANSFUSING ON ADMISSION. ENDORSED SEPSIS REASSESSMENT TO RN.
--- NOTE | 2018-08-09 19:50 | NUR ---
TELERN RECEIVED FROM ER VIA [place] BY DAUGHTER, PLACED TO BED COMFORTABLE. DAUGHTER PROVIDING INFORMATION. HAS MEDLIST FINALIZED, REVIEWED AND DOCUMENTED. NO SOB, V/S STABLE. ABLE TO VERBALIZED FEW WORDS, SPEECH CLEAR. INCONTINENT, NO WOUNDS, SKIN CLEAR. SOME REDNESS SEEN AT BOTH ANKLES AND FEET.PERINEAL REDNESS SEEN. ZGUARD APPLIED.HS CARE STARTED. REPOSITIONED. PRESENT IVF TO CONSUME. WILL START PATIENT ON ANTIBIOTICS. SB ON THE MONITOR
--- NOTE | 2018-08-09 19:50 | NUR ---
PT TRANSFERRED PER ACLS PROTOCOL VIA GURNEY TO [facility]
[2018-08-09 20:00] VITALS: BP 134/81
[2018-08-09] MEDS ORDERED: HYDROCODONE/APAP 5/325MG 1 EACH TABLET PO PRN (20:00)
[2018-08-09] MEDS ORDERED: ACETAMINOPHEN 325 MG TABLET PO PRN (20:00)
[2018-08-09] MEDS ORDERED: MAGNESIUM HYDROXIDE 30 ML UDC PO PRN (20:00)
[2018-08-09] MEDS ORDERED: ONDANSETRON HCL/PF 4 MG/2 ML VIAL IVP PRN (20:00)
[2018-08-09] MEDS ORDERED: Z GUARD REMEDY 2 OZ OINT TP PRN (20:00)
[2018-08-09] MEDS ORDERED: MAG HYDROX/AL HYDROX/SIMETH 30 ML UDC PO PRN (20:00)
[2018-08-09 20:30] VITALS: BP 134/81
[2018-08-09] MEDS ORDERED: OMEG-15 PO (20:46)
[2018-08-09] MEDS ORDERED: OLAN2.5T3 PO (20:46)
[2018-08-09] MEDS ORDERED: CRAN300T PO (20:46)
[2018-08-09] MEDS ORDERED: CHOL200026 PO (20:46)
[2018-08-09] MEDS ORDERED: MEMANTINE HCL 5 MG TABLET PO SCH (20:48)
[2018-08-09] MEDS: IV NS 0.9% 1,000 ML IV PRN (21:54)
[2018-08-09] MEDS: CEFTRIAXONE 1 G in IV D5W 50 ML IV SCH (21:54)
[2018-08-09] MEDS: OLANZAPINE 2.5 MG TABLET PO SCH (21:54)
[2018-08-09] MEDS: LEVETIRACETAM (250 MG) 250 MG TABLET PO SCH (21:55)
--- NOTE | 2018-08-09 22:25 | NUR ---
TELERN ANOTHER DAUGHTER ARRIVED, FEEDING PATIENT NO DIFFICULTY SWALLOWING. ABLE TO DRINK FLUIDS WITHOUT DIFFICULTY. MAINTAINED HOB UP TO 45 DEGREES AT ALL TIMES. DAUGHTER TO STAY PATIENT TRYING TO COMMUNICATE TO STAFF. REALITY ORIENTATION, APPEARS TO UNDERSTAND. PLAN OF CARE AND MEDICATION REGIMEN EXPLAINED TO FAMILY AND MEDICATION RECONCILIATION CLARIFIED FROM MD. DUE MEDS ADMINISTERED.
[2018-08-09] MEDS: AZITHROMYCIN 500 MG in IV D5W 250 ML IV SCH (22:39)
[2018-08-10 00:13] VITALS: BP 139/77
--- NOTE | 2018-08-10 02:56 | NUR ---
TELERN SLEEPING APPEARS COMFORTABLE. CLOSELY WATCHED.
[2018-08-10 04:27] LABS: BASOPHILS % (AUTO) 0.6 % (0.0-2.0); EOSINOPHILS % (AUTO) 4.2 % (0.0-6.0); HEMATOCRIT 39 % (33-45); HEMOGLOBIN 12.7 g/dL (11.5-14.8); LYMPHOCYTES # (AUTO) 1.4 /CMM (0.8-4.8); LYMPHOCYTES % (AUTO) 22.8 % (20.0-44.0); MEAN CORPUSCULAR HGB CONC 33 g/dl (31.0-36.0); MEAN CORPUSCULAR VOLUME 93 fL (82-100); MONOCYTES # (AUTO) 0.5 /CMM (0.1-1.30); MONOCYTES % (AUTO) 8.3 % (2.0-12.0); NEUTROPHILS # (AUTO) 3.9 /CMM (1.8-8.9); NEUTROPHILS % (AUTO) 64.1 % (43.0-81.0); PLATELET COUNT (AUTO) 172 /CMM (150-450); RED BLOOD CELL COUNT(AUTO) 4.14 MIL/uL (4.0-5.2); WHITE BLOOD COUNT (AUTO) 6.1 K/uL (4.3-11.0)
[2018-08-10 04:30] VITALS: BP 102/52
[2018-08-10 04:41] LABS: CALCIUM, SERUM 9.1 mg/dL (8.5-10.1); CARBON DIOXIDE 28 mmol/L (21-32); CHLORIDE 106 mmol/L (98-107); CREATININE 1.1 mg/dL (0.6-1.3); GLUCOSE 177 mg/dL (74-106); MAGNESIUM 2.1 mg/dL (1.8-2.4); PHOSPHORUS 2.7 mg/dL (2.5-4.9); SODIUM SERUM 143 mmol/L (136-145); UREA NITROGEN, BLOOD 17 mg/dL (7-18)
[2018-08-10 04:48] LABS: POTASSIUM 2.8 mmol/L (3.5-5.1)
--- NOTE | 2018-08-10 04:48 | NUR ---
TELERN RECEIVED CALL FROM LAB/ K LEVEL WAS 2.8. LACTIC ACID WAS 2.0. WILL CALL .
[2018-08-10 04:52] LABS: CHOLESTEROL 175 mg/dL (<200); HDL CHOLESTEROL 33 mg/dL (40-60); LDL 115 mg/dL (0-99); THYROID STIMULATING HORMONE 5.564 uIU/mL (0.358-3.74); TRIGLYCERIDES 159 mg/dL (30-150)
--- NOTE | 2018-08-10 04:55 | NUR ---
TELERN PENDING FURTHER ORDERS FROM DR ANDERSON.
[2018-08-10] MEDS ORDERED: POTASSIUM CHLORIDE 20 MEQ TAB.PRT.SR PO ONE (05:00)
--- NOTE | 2018-08-10 05:03 | NUR ---
TELERN ORDERS RECEIVED
--- NOTE | 2018-08-10 06:25 | NUR ---
TELERN DOSE OF 60 MEQ K ADMINISTERED WITH APPLE SAUCE. LARGE URINE OUTPUT, WITH SMALL LOOSE BM. KEPT DRY CLEAN AND COMFORTABLE.
[2018-08-10 08:00] VITALS: BP 138/76
[2018-08-10] MEDS ORDERED: ESCITALOPRAM OXALATE (10 MG) 10 MG TABLET PO SCH (09:00)
[2018-08-10] MEDS ORDERED: Medication Not On Formulary EA (Valsartan/Hydrochlorothiazide (Diovan Hct 320-25 Mg Tabl PO SCH (09:00)
[2018-08-10] MEDS: VALSARTAN 80 MG TABLET PO SCH (10:04)
[2018-08-10] MEDS: POTASSIUM CHLORIDE 10 MEQ TABLET.SA PO SCH (10:05)
[2018-08-10] MEDS: LEVOTHYROXINE SODIUM 88 MCG TABLET PO SCH (10:05)
[2018-08-10] MEDS: PANTOPRAZOLE 40 MG TABLET.DR PO SCH (10:05)
[2018-08-10] MEDS: CHOLECALCIFEROL 1,000 UNIT TABLET (VIT D3) PO SCH (10:06)
[2018-08-10] MEDS: ASPIRIN EC 81 MG TABLET.DR PO SCH (10:06)
[2018-08-10] MEDS: LEVETIRACETAM (250 MG) 250 MG TABLET PO SCH ×2 (10:08→22:21)
[2018-08-10] MEDS: GALANTAMINE HYDROBROMIDE 4 MG TABLET PO SCH (10:11)
[2018-08-10] MEDS: buPROPion 100 MG TABLET PO SCH ×2 (11:03→13:30)
[2018-08-10] MEDS: IV NS 0.9% 1,000 ML IV PRN (11:04)
[2018-08-10] MEDS: HYDROCHLOROTHIAZIDE 25 MG TABLET PO SCH (13:30)
--- NOTE | 2018-08-10 15:00 | NUR ---
STOOL SENT PER ORDERS.DTRS AT BEDSIDE ALL DAY.
[2018-08-10 16:00] VITALS: BP 147/81
[2018-08-10] MEDS: SIMVASTATIN 40 MG TABLET PO SCH (18:10)
--- NOTE | 2018-08-10 19:30 | NUR ---
MSRN PATIENT ASLEEP DAUGHTER AT BEDSIDE. PER DAUGHTER WILL NOT STAY TONIGHT WITH PATIENT, NEEDS CONSTANT AND FREQ CHECKS, HFR. NO NEEDS FOR NOW. PRESENT IVF ON PROGRESS. TO CONTINUE.
[2018-08-10 20:00] VITALS: BP 122/73
[2018-08-10] MEDS: CEFTRIAXONE 1 G in IV D5W 50 ML IV SCH (20:43)
[2018-08-10 21:47] LABS: OCCULT BLOOD STOOL NEGATIVE (NEGATIVE)
[2018-08-10] MEDS: AZITHROMYCIN 500 MG in IV D5W 250 ML IV SCH (22:20)
[2018-08-10] MEDS: OLANZAPINE 2.5 MG TABLET PO SCH (22:21)
--- NOTE | 2018-08-10 22:25 | NUR ---
MSRN SLEPT MOST OF THE TIME. AROUSABLE WHEN CALLED, DUE MEDS ADMINISTERED. HS CARE STARTED. NO LOOSE BM, SMEARS ONLY.
[2018-08-11] MEDS: IV NS 0.9% 1,000 ML IV PRN ×2 (02:48→17:09)
--- NOTE | 2018-08-11 03:45 | NUR ---
MSRN REMAINS UNCHANGED, FREQ REPOSITIOING. CLOSELY WATCHED.
--- NOTE | 2018-08-11 06:45 | NUR ---
MSRN AWAKE SINCE 0530, AM CARE DONE. PRESENT IVF CONTINUED.
[2018-08-11 08:00] VITALS: BP 127/68
[2018-08-11] MEDS: LEVOTHYROXINE SODIUM 88 MCG TABLET PO SCH (09:07)
[2018-08-11] MEDS: HYDROCHLOROTHIAZIDE 25 MG TABLET PO SCH (09:08)
[2018-08-11] MEDS: LEVETIRACETAM (250 MG) 250 MG TABLET PO SCH ×2 (09:09→21:11)
[2018-08-11] MEDS: POTASSIUM CHLORIDE 10 MEQ TABLET.SA PO SCH (09:09)
[2018-08-11] MEDS: ASPIRIN EC 81 MG TABLET.DR PO SCH (09:09)
[2018-08-11] MEDS: CHOLECALCIFEROL 1,000 UNIT TABLET (VIT D3) PO SCH (09:10)
[2018-08-11] MEDS: VALSARTAN 80 MG TABLET PO SCH (09:10)
[2018-08-11] MEDS: PANTOPRAZOLE 40 MG TABLET.DR PO SCH (09:16)
[2018-08-11] MEDS: GALANTAMINE HYDROBROMIDE 4 MG TABLET PO SCH (09:17)
[2018-08-11] MEDS: buPROPion 100 MG TABLET PO SCH ×2 (09:33→12:44)
--- NOTE | 2018-08-11 12:30 | NUR ---
DR. DELACRUZ IN TO SEE PT. ORDERS WRITTEN.
[2018-08-11 15:16] LABS: BASOPHILS % (AUTO) 0.7 % (0.0-2.0); EOSINOPHILS % (AUTO) 4.8 % (0.0-6.0); HEMATOCRIT 40 % (33-45); HEMOGLOBIN 12.9 g/dL (11.5-14.8); LYMPHOCYTES # (AUTO) 1.2 /CMM (0.8-4.8); LYMPHOCYTES % (AUTO) 19.6 % (20.0-44.0); MEAN CORPUSCULAR HGB CONC 33 g/dl (31.0-36.0); MEAN CORPUSCULAR VOLUME 95 fL (82-100); MONOCYTES # (AUTO) 0.4 /CMM (0.1-1.30); MONOCYTES % (AUTO) 7.4 % (2.0-12.0); NEUTROPHILS % (AUTO) 67.5 % (43.0-81.0); PLATELET COUNT (AUTO) 164 /CMM (150-450); RED BLOOD CELL COUNT(AUTO) 4.16 MIL/uL (4.0-5.2); WHITE BLOOD COUNT (AUTO) 5.9 K/uL (4.3-11.0)
[2018-08-11 15:22] LABS: CALCIUM, SERUM 9.1 mg/dL (8.5-10.1); CARBON DIOXIDE 27 mmol/L (21-32); CHLORIDE 109 mmol/L (98-107); GLUCOSE 171 mg/dL (74-106); POTASSIUM 3.7 mmol/L (3.5-5.1); SODIUM SERUM 144 mmol/L (136-145); UREA NITROGEN, BLOOD 8 mg/dL (7-18)
[2018-08-11 16:00] VITALS: BP 134/89
[2018-08-11] MEDS ORDERED: POLYETHYLENE GLYCOL 3350 17 GM POWD.PACK PO PRN (16:30)
[2018-08-11] MEDS ORDERED: POLYETHYLENE GLYCOL 3350 17 GM POWD.PACK PO SCH (16:30)
[2018-08-11] MEDS: SIMVASTATIN 40 MG TABLET PO SCH (17:22)
[2018-08-11] MEDS: LACTOBACILLUS RHAMNOSUS GG 1 EACH CAP.SPRINK PO SCH (17:22)
--- NOTE | 2018-08-11 18:45 | NUR ---
NOTED LOOSE COUGH.
--- NOTE | 2018-08-11 19:15 | NUR ---
ENDORSED CHEST XRAY REPORT TO GRACIA MORENO ,TO GET IN TOUCH WITH DR. DELACRUZ.
--- NOTE | 2018-08-11 19:30 | NUR ---
RN NOTES RECEIVED PT. SLEEPING BUT AROUSABLE, A/OX1-2, NO PAIN NOTED, NO SOB, CALL LIGHT WITHIN REACH, SIDERAILSUPX2, CONTINUE TO MONITOR
[2018-08-11 20:00] VITALS: BP 133/55
[2018-08-11] MEDS: CEFTRIAXONE 1 G in IV D5W 50 ML IV SCH (20:02)
--- NOTE | 2018-08-11 20:55 | NUR ---
RN NOTES SPOKE TO DR. DELACRUZ AND INFORMED HIM REGARDING PT'S DAUGHTER CONCERNED, REGARDING PT. CHEST XRAY, DR. DELACRUZ ORDER TO STOP THE IV FLUID, ORDER NOTED AND CARRIED OUT
[2018-08-11] MEDS: AZITHROMYCIN 500 MG in IV D5W 250 ML IV SCH (21:05)
[2018-08-11] MEDS: OLANZAPINE 2.5 MG TABLET PO SCH (21:11)
--- NOTE | 2018-08-12 06:00 | NUR ---
RN NOTES DR. DELACRUZ CAME AND MADE ROUNDS AND MADE NO ORDER
--- NOTE | 2018-08-12 06:42 | NUR ---
RN NOTES SLEEPING BUT AROUSABLE, IV LINE PATENT NO REDNESS OR SWOLLEN, MORNING CARE RENDERED, PT. NEEDS ATTENDED
[2018-08-12 08:00] VITALS: BP 147/73
[2018-08-12] MEDS: CHOLECALCIFEROL 1,000 UNIT TABLET (VIT D3) PO SCH (08:41)
[2018-08-12] MEDS: ASPIRIN EC 81 MG TABLET.DR PO SCH (08:42)
[2018-08-12] MEDS: POTASSIUM CHLORIDE 10 MEQ TABLET.SA PO SCH (08:42)
[2018-08-12] MEDS: LEVOTHYROXINE SODIUM 88 MCG TABLET PO SCH (08:43)
[2018-08-12] MEDS: LACTOBACILLUS RHAMNOSUS GG 1 EACH CAP.SPRINK PO SCH ×2 (08:44→17:25)
[2018-08-12] MEDS: VALSARTAN 80 MG TABLET PO SCH (08:44)
[2018-08-12] MEDS: LEVETIRACETAM (250 MG) 250 MG TABLET PO SCH ×2 (08:44→21:59)
[2018-08-12] MEDS: HYDROCHLOROTHIAZIDE 25 MG TABLET PO SCH (08:45)
[2018-08-12] MEDS: buPROPion 100 MG TABLET PO SCH ×2 (08:46→13:16)
[2018-08-12] MEDS: GALANTAMINE HYDROBROMIDE 4 MG TABLET PO SCH (08:46)
[2018-08-12] MEDS: PANTOPRAZOLE 40 MG TABLET.DR PO SCH (08:48)
--- NOTE | 2018-08-12 08:50 | NUR ---
MS RN NOTES Patient is up sitting in bed, had breakfast with fair appetite, assisted with feeding. On low flow oxygen at 2L/min via NC, denies shortness of breath, no cough. Maintained safety, will cont to monitor.
[2018-08-12 10:27] VITALS: BP 147/73
[2018-08-12 16:00] VITALS: BP 133/74
[2018-08-12] MEDS: SIMVASTATIN 40 MG TABLET PO SCH (17:25)
--- NOTE | 2018-08-12 18:18 | NUR ---
MS RN NOTES Patient is on low flow oxygen at 2L/min via NC, oxygen 96%, no shortness of breath. Assisted with feeding, reposition every 2 hours. Off IVF, continued on antibiotic per ID. DC planning, maintained safety, will endorse to oncoming RN.
--- NOTE | 2018-08-12 19:30 | NUR ---
RN NOTES RECEIVED PT. SLEEPING BUT AROUSABLE, NO PAIN NOTED, NO SOB, SIDERAILSUPX2, HEAD OF THE BED IS UP TO 45 DEGREE, CONTINUE TO MONITOR
[2018-08-12 20:00] VITALS: BP 120/72
[2018-08-12] MEDS ORDERED: AZITHROMYCIN 250 MG TABLET PO SCH (21:00)
[2018-08-12] MEDS: OLANZAPINE 2.5 MG TABLET PO SCH (21:59)
--- NOTE | 2018-08-13 06:45 | NUR ---
RN NOTES SLEEPING BUT AROUSABLE, MORNING CARE RENDERED, NO PAIN NOTED, NO SOB, PT. NEEDS ATTENDED
--- NOTE | 2018-08-13 07:42 | NUR ---
RN OPENING NOTES RECEIVED PT. PT STABLE AND RESTING IN BED. A/OX1. NO S/S OF RESP DISTRESS/SOB. NO C/O PAIN AT THIS TIME. IV ACCESS LOCATED ON R HAND 20G SL. PER MD NOTE D/C PLANNING FOR TODAY. SAFETY MEASURES IN PLACE, CALL LIGHT WITHIN REACH. WILL CONTINUE TO MONITOR.
[2018-08-13 08:09] VITALS: BP 129/74
[2018-08-13] MEDS: PANTOPRAZOLE 40 MG TABLET.DR PO SCH (08:18)
[2018-08-13] MEDS: LACTOBACILLUS RHAMNOSUS GG 1 EACH CAP.SPRINK PO SCH (08:18)
[2018-08-13] MEDS: ASPIRIN EC 81 MG TABLET.DR PO SCH (08:18)
[2018-08-13] MEDS: HYDROCHLOROTHIAZIDE 25 MG TABLET PO SCH (08:19)
[2018-08-13] MEDS: LEVOTHYROXINE SODIUM 88 MCG TABLET PO SCH (08:20)
[2018-08-13] MEDS: CHOLECALCIFEROL 1,000 UNIT TABLET (VIT D3) PO SCH (08:20)
[2018-08-13] MEDS: VALSARTAN 80 MG TABLET PO SCH (08:20)
[2018-08-13] MEDS: POTASSIUM CHLORIDE 10 MEQ TABLET.SA PO SCH (08:21)
[2018-08-13] MEDS: GALANTAMINE HYDROBROMIDE 4 MG TABLET PO SCH (08:21)
[2018-08-13] MEDS: LEVETIRACETAM (250 MG) 250 MG TABLET PO SCH (08:21)
[2018-08-13] MEDS: buPROPion 100 MG TABLET PO SCH (08:22)
[2018-08-13 09:00] VITALS: BP 129/74
--- NOTE | 2018-08-13 12:30 | NUR ---
RN CLOSING NOTES PT DISCHARGED HOME. PT STABLE, NO S/S OF RESP DISTRESS OR SOB. DISCHARGE TEACHING PERFORMED, PTS FAMILY VERBALIZED UNDERSTANDING. EXIT CARE PROVIDED. ALL D/C INSTRUCTIONS & BELONGINGS SHEET SIGNED, COPIED AND PLACED IN CHART. IV ACCESS AND ID BAND REMOVED. PT LEFT HOSPITAL IN PRIVATE VEHICLE WITH DAUGHTER.
== END 2018-08-13 13:10 | disposition home or self-care (01) | DRG 871 ==
LOC: ER 16:06 → TELE 19:19 → MED 08-10 10:56
PROVIDERS: ADMIT Registered Nurse; ATTEND Legal Medicine
DX: A41.9 Sepsis, unspecified organism (principal); G93.41 Metabolic encephalopathy; N17.0 Acute kidney failure with tubular necrosis; J18.9 Pneumonia, unspecified organism; A09 Infectious gastroenteritis and colitis, unspecified; I13.0 Hypertensive heart and chronic kidney disease with heart failure and stage 1 through stage 4 chronic kidney disease, or unspecified chronic kidney disease; I50.20 Unspecified systolic (congestive) heart failure; E87.0 Hyperosmolality and hypernatremia; E87.2 Acidosis; J98.11 Atelectasis; E11.22 Type 2 diabetes mellitus with diabetic chronic kidney disease; N18.9 Chronic kidney disease, unspecified; G30.9 Alzheimer's disease, unspecified; F02.80 Dementia in other diseases classified elsewhere, unspecified severity, without behavioral disturbance, psychotic disturbance, mood disturbance, and anxiety; G40.909 Epilepsy, unspecified, not intractable, without status epilepticus; Z83.3 Family history of diabetes mellitus; Z82.49 Family history of ischemic heart disease and other diseases of the circulatory system; Z80.41 Family history of malignant neoplasm of ovary; Z80.0 Family history of malignant neoplasm of digestive organs; Z98.890 Other specified postprocedural states; Z79.899 Other long term (current) drug therapy; Z79.82 Long term (current) use of aspirin; I10 Essential (primary) hypertension; E78.5 Hyperlipidemia, unspecified; E86.0 Dehydration; E03.9 Hypothyroidism, unspecified; E83.52 Hypercalcemia; K59.00 Constipation, unspecified
CPT/HCPCS: 36415; 71045-TC; 80048-TC; 80061-TC; 80076-TC; 81000-TC; 82272-TC; 82962-TC; 83605-TC; 83735-TC; 83880; 84100-TC; 84443-TC; 84484-TC; 85025-TC; 85730-TC; 87040-TC; 87045-TC; 87081-TC; 87086-TC; 87177; 87209; 89055; 92611-TC; A4606; G0378; J0456; J0696; J2405; J2543; J7030; J7060; Z7610

== ENCOUNTER 2019-02-13 19:45 | Emergency (ER) | payer MEDICARE, OTHER ==
[~2019-02-13] VITALS: Ht 152.4 cm; Wt 53.5 kg
[~2019-02-13 19:45] MED LIST changes: -AMLO5TAB7 PO; +AMLO5TAB9 PO; +CHOL200026 PO; +CRAN300T PO; +OLAN2.5T3 PO; +OMEG-15 PO
--- NOTE | 2019-02-13 19:55 | NUR ---
PT BIBCAREGIVER, PER CAREGIVER STATES HE NOTED BRIGHT RED BLOOD IN DIAPER X1 DAY. DENIES ABDOMINAL PAIN, NAUSEA, VOMITTING, SOB, DIZZINESS. VITAL SIGNS STABLE. NO ACUTE DISTRESS NOTED AT THIS TIME. PT PLACED IN GOWN AND ON MONITOR, WILL CONTINUE TO MONITOR
--- NOTE | 2019-02-13 20:00 | NUR ---
MD AT BEDSIDE FOR EVALUATION
[2019-02-13] MEDS ORDERED: IV NS 0.9% 500 ML BAG IV ONE (20:30)
--- NOTE | 2019-02-13 20:30 | NUR ---
PT ANGEL, WORM RAISER AT BEDSIDE FOR BLOOD DRAW
[2019-02-13 20:40] LABS: BASOPHILS % (AUTO) 0.3 % (0.0-2.0); EOSINOPHILS % (AUTO) 0.7 % (0.0-6.0); HEMATOCRIT 36 % (33-45); LYMPHOCYTES # (AUTO) 1.1 /CMM (0.8-4.8); LYMPHOCYTES % (AUTO) 13.5 % (20.0-44.0); MEAN CORPUSCULAR HGB CONC 33 g/dl (31.0-36.0); MEAN CORPUSCULAR VOLUME 94 fL (82-100); MONOCYTES # (AUTO) 0.4 /CMM (0.1-1.30); MONOCYTES % (AUTO) 4.4 % (2.0-12.0); NEUTROPHILS # (AUTO) 6.7 /CMM (1.8-8.9); NEUTROPHILS % (AUTO) 81.1 % (43.0-81.0); PLATELET COUNT (AUTO) 140 /CMM (150-450); RED BLOOD CELL COUNT(AUTO) 3.83 MIL/uL (4.0-5.2); WHITE BLOOD COUNT (AUTO) 8.3 K/uL (4.3-11.0)
[2019-02-13 20:56] LABS: CARBON DIOXIDE 25 mmol/L (21-32); CHLORIDE 106 mmol/L (98-107); POTASSIUM 3.8 mmol/L (3.5-5.1); SODIUM SERUM 144 mmol/L (136-145)
[2019-02-13 20:58] LABS: CALCIUM, SERUM 10.2 mg/dL (8.5-10.1); CREATININE 1.6 mg/dL (0.6-1.3); GLUCOSE 163 mg/dL (74-106); UREA NITROGEN, BLOOD 45 mg/dL (7-18)
[2019-02-13 21:01] LABS: ALANINE AMINOTRANSFERASE 18 U/L (12-78); ALBUMIN 3.2 g/dL (3.4-5.0); ALKALINE PHOSPHATASE 55 U/L (46-116); ASPARTATE AMINOTRANSFERASE 14 U/L (15-37); BILIRUBIN,DIRECT 0.1 mg/dL (0.0-0.2); BILIRUBIN,TOTAL 0.4 mg/dL (0.2-1.0); LIPASE 125 U/L (73-393); TOTAL PROTEIN, SERUM 6.6 g/dL (6.4-8.2)
--- NOTE | 2019-02-13 21:38 | NUR ---
Patient discharged to home in stable condition. Written and verbal after care instructions given. Patient verbalizes understanding of instruction. IV removed. Catheter intact and site benign. Pressure and 4x4 applied to site. No bleeding noted. Pt ambulatory with a steady gait
[2019-02-13 21:39] VITALS: BP 126/80
== END 2019-02-13 22:21 | disposition home or self-care (01) ==
LOC: ER 19:52
DX: K62.5 Hemorrhage of anus and rectum (principal); K59.00 Constipation, unspecified; N28.9 Disorder of kidney and ureter, unspecified; G30.9 Alzheimer's disease, unspecified; F02.80 Dementia in other diseases classified elsewhere, unspecified severity, without behavioral disturbance, psychotic disturbance, mood disturbance, and anxiety; I10 Essential (primary) hypertension; R53.1 Weakness; F32.9 Major depressive disorder, single episode, unspecified; E03.9 Hypothyroidism, unspecified; E78.00 Pure hypercholesterolemia, unspecified; Z98.890 Other specified postprocedural states; Z90.49 Acquired absence of other specified parts of digestive tract; Z79.82 Long term (current) use of aspirin
CPT/HCPCS: 36415; 80048; 80076; 83690; 84484; 85025; 85730; 99283; J7040

== ENCOUNTER 2020-02-19 06:06 | Emergency (ER) | payer MEDICARE ==
[~2020-02-19] VITALS: Ht 152.4 cm; Wt 59.0 kg
[~2020-02-19 06:06] MED LIST changes: +SIMV-49 PO; -SIMV40TA5 PO
--- NOTE | 2020-02-19 06:15 | NUR ---
PT VADIM FROM [facility] AND CARE FOR SOB. PT UNABLE TO ANSWER QUESTIONS, SATTING 70'S RETAIL BRANCH MANAGER ON RA, PLACED ON 15 NRB RETAIL BRANCH MANAGER, SATTING 82%, LABORED BREATHING NOTED. CONNECTED TO THE AIRPORT DRIVER AND PULSE OX. RT AT BEDSIDE. DR ALMAGUER AT BEDSIDE
--- NOTE | 2020-02-19 06:18 | NUR ---
RT AT BEDSIDE FOR ABG
--- NOTE | 2020-02-19 06:20 | NUR ---
IV LINE ESTABLISHED RH 20 G. LABS UNABLE TO BE DRAWN FROM SITE. CALLED LAB FOR BLOOD DRAW
[2020-02-19 06:35] VITALS: BP 168/150
--- NOTE | 2020-02-19 06:36 | NUR ---
PT HARD STICK. MULTIPLE ATTEMPTS FOR BLOOD DRAW.
--- NOTE | 2020-02-19 06:40 | NUR ---
UPON ASSESSMENT, NOTED CHANGE OF CONDITION. PT HR NOTED 39. WEAK PULSE UPON PALPITATION. SHALLOW BREATHS NOTED. MD AWARE.
[2020-02-19 06:41] LABS: ABG BASE EXCESS -17.7 mmol/L; ABG OXYGEN SATURATION 93.1 % (92.0-98.5); ABG PCO2 29.7 mmHg (35.0-45.0); ABG PH 7.142 (7.350-7.450); ABG PO2 85.6 mmHg (75.0-100.0); AaDO2 597.7 mmHg; COHb 0.5 % (0.5-1.5); MetHb 0.1 % (0.0-1.5); O2Hb 92.5 % (94.0-97.0); SITE, ABG Left Radial
--- NOTE | 2020-02-19 06:42 | NUR ---
CPR INITIATED AT THIS TIME. SEE CODE SHEET.
--- NOTE | 2020-02-19 06:47 | NUR ---
DR ALMAGUER SPEAKING W/ FAMILY REGARDING PLAN OF CARE.
--- NOTE | 2020-02-19 06:58 | NUR ---
D/T UNDERLYING HEALTH CONDITIONS, CODE TERMINATED SECONDARY TO FUTILITY AFTER DR ALMAGUER SPOKE W/ FAMILY.
--- NOTE | 2020-02-19 07:09 | NUR ---
CALLED [facility] TRIM[facility]. SPOKE WITH ELIZABETH, NOT A CASE
--- NOTE | 2020-02-19 07:14 | NUR ---
CALLED [facility], "[facility] WILL NOT BE MOVING FORWARD WITH THIS PATIENT", [phone] IS THE REFERRAL NUMBER.
--- NOTE | 2020-02-19 08:11 | NUR ---
GOT A CALL BACK FROM ON-CALL , DR. MARIANNE HERMAN, HE WILL PASS INFORMATION ON TO PRIMARY CARE DOCTOR, DR. CHINO. Addendum: 02/19/20 [address] CHINO WILL SIGN THE CERTIFICATE
--- NOTE | 2020-02-19 08:23 | NUR ---
PT BROUGHT TO [facility]
--- NOTE | 2020-02-19 08:51 | NUR ---
Yonas ([facility]) outside medical sales representative picked up the .
== END 2020-02-19 08:28 | disposition expired ==
LOC: ER 06:13
DX: I46.9 Cardiac arrest, cause unspecified (principal); G30.9 Alzheimer's disease, unspecified; F02.80 Dementia in other diseases classified elsewhere, unspecified severity, without behavioral disturbance, psychotic disturbance, mood disturbance, and anxiety; E03.9 Hypothyroidism, unspecified; E78.00 Pure hypercholesterolemia, unspecified; Z90.49 Acquired absence of other specified parts of digestive tract; F32.9 Major depressive disorder, single episode, unspecified; Z79.899 Other long term (current) drug therapy; Z79.890 Hormone replacement therapy; R00.0 Tachycardia, unspecified
CPT/HCPCS: 36600; 82803-TC; U0003-CS